=== PATIENT | male | born 1950 ===

== ENCOUNTER 2018-03-25 13:17 | Inpatient (IN) | payer OTHER ==
[~2018-03-25] VITALS: Ht 154.9 cm; Wt 47.6 kg
[~2018-03-25 13:17] MED LIST: LEVAQUIN500 MG PO; TAMS0.4C PO
[2018-04-04] MEDS ORDERED: HYOSCYAMINE0.125 M1 SL (15:12)
[2018-04-04] MEDS ORDERED: FOLIC ACID1 MG PO (15:12)
[2018-04-04] MEDS ORDERED: PROTONIX40 MG PO (15:12)
[2018-04-04] MEDS ORDERED: CYANOCOBAL1000 MCG/1 IM (15:12)
[2018-04-04] MEDS ORDERED: MULTIVITAM9 MG/15 M1 PO (15:12)
== END 2018-04-04 16:42 | disposition home or self-care (01) | DRG 181 ==
LOC: ER 13:17 → SURH 03-26 09:29 → SEC-K 03-26 09:29 → MEDI 03-26 11:50 → SEC-K 03-26 11:50 → SURH 03-26 13:40
PROC: 30233N1 Transfusion of Nonautologous Red Blood Cells into Peripheral Vein, Percutaneous Approach (ICD-10-PCS; 2018-03-26)
PROC: BB24Y0Z Computerized Tomography (CT Scan) of Bilateral Lungs using Other Contrast, Unenhanced and Enhanced (ICD-10-PCS; 2018-03-27)
PROC: BW21Y0Z Computerized Tomography (CT Scan) of Abdomen and Pelvis using Other Contrast, Unenhanced and Enhanced (ICD-10-PCS; 2018-03-27)
PROC: 0WBC3ZX Excision of Mediastinum, Percutaneous Approach, Diagnostic (ICD-10-PCS; principal; 2018-03-29)
PROC: 02HV33Z Insertion of Infusion Device into Superior Vena Cava, Percutaneous Approach (ICD-10-PCS; 2018-03-30)
PROC: 3E0436Z Introduction of Nutritional Substance into Central Vein, Percutaneous Approach (ICD-10-PCS; 2018-03-30)
PROC: 0DB78ZX Excision of Stomach, Pylorus, Via Natural or Artificial Opening Endoscopic, Diagnostic (ICD-10-PCS; 2018-03-31)
DX: C38.1 Malignant neoplasm of anterior mediastinum (principal); C16.3 Malignant neoplasm of pyloric antrum; C78.6 Secondary malignant neoplasm of retroperitoneum and peritoneum; D50.8 Other iron deficiency anemias; N40.0 Benign prostatic hyperplasia without lower urinary tract symptoms; K57.30 Diverticulosis of large intestine without perforation or abscess without bleeding; K59.09 Other constipation; R30.0 Dysuria